=== PATIENT | male | born 1975 | race Caucasian/White ===

== ENCOUNTER 2021-09-15 20:39 | Emergency (ER) | payer OTHER ==
[~2021-09-15] VITALS: Ht 185.4 cm; Wt 102.1 kg
[2021-09-15] MEDS ORDERED: LIDOCAINE HCL 1% 20 ML VIAL IJ ONE (22:15)
[2021-09-15] MEDS ORDERED: TDAP DIPH,PERTUSS,TET VAC/PF 0.5 ML DISP.SYRIN IM ONE ×2 (22:15→22:31)
[2021-09-15] MEDS ORDERED: SULF1TAB48 PO (23:57)
--- NOTE | 2021-09-16 00:19 | NUR ---
Patient discharged to home in stable condition. Written and verbal after care instructions given. Patient verbalizes understanding of instructions. Stressed follow up or return to ER for worsening s/s.
[2021-09-16 00:20] VITALS: BP 128/72
== END 2021-09-16 00:20 | disposition home or self-care (01) ==
LOC: ER 20:45
DX: S61.217A Laceration without foreign body of left little finger without damage to nail, initial encounter (principal); S80.212A Abrasion, left knee, initial encounter; W01.198A Fall on same level from slipping, tripping and stumbling with subsequent striking against other object, initial encounter; Y93.01 Activity, walking, marching and hiking; Y92.89 Other specified places as the place of occurrence of the external cause
CPT/HCPCS: 12001; 73140; 73564; 90471; 90715; 99284; J3490; A4217; A4663